=== PATIENT | female | born 1980 | race American Indian/Alaskan Native ===

== ENCOUNTER 2016-11-14 17:28 | Emergency (ER) | payer SELFPAY ==
--- NOTE | 2016-11-14 21:05 | Emergency Department Report ---
HPI - General Chief Complaint: Extremity Injury, Upper Time Seen by Provider: 11/14/16 20:53 - HPI HPI: Patient is a 36-year-old female with no known medical history presents ED complaining of pain and mild swelling to right middle finger at the tip of the finger that started Wednesday. Patient states the pain has gotten a bit worse. Patient states no draining or biting of nails. She denies fever/chills/trauma / nausea/vomiting/abdominal pain or any other problems ED Past Medical Hx - Past Medical History Hx Diabetes: Yes - Surgical History Additional Surgical History: x3. TUBAL LIGATION - Social History Smoking Status: Former Smoker Substance Use Type: Alcohol, Marijuana - Medications Home Medications: Home Medications Medication Instructions Recorded Confirmed Last Taken Type Fluconazole [Diflucan TAB] 150 mg PO ONCE #1 tablet 06/02/16 Unknown Rx metFORMIN [Glucophage] 500 mg PO QDAY #30 tab 06/02/16 Unknown Rx Acetaminophen/Codeine [Tylenol 1 tab PO Q6H #10 tablet 11/14/16 Unknown Rx /Codeine # 3 tab] Cephalexin [Keflex] 500 mg PO BID #12 capsule 11/14/16 Unknown Rx Ibuprofen [Motrin] 800 mg PO Q8HR PRN #20 tablet 11/14/16 Unknown Rx ED Review of Systems ROS: Stated complaint: DIABETIC,MIDDLE FINGER SWOLLEN Other details as noted in HPI Constitutional: denies: chills, fever Eyes: denies: eye pain, eye discharge, vision change ENT: denies: ear pain, throat pain Respiratory: denies: cough, shortness of breath, wheezing Cardiovascular: denies: chest pain, palpitations Endocrine: no symptoms reported Gastrointestinal: denies: abdominal pain, nausea, diarrhea Genitourinary: denies: urgency, dysuria, discharge Musculoskeletal: denies: back pain, joint swelling, arthralgia Skin: denies: rash, lesions Neurological: denies: headache, weakness, paresthesias Psychiatric: denies: anxiety, depression Hematological/Lymphatic: denies: easy bleeding, easy bruising Physical Exam - Physical Exam Vital Signs: Vital Signs 11/14/16 17:53 Temperature 98.7 F Pulse Rate 96 H Respiratory 18 Rate Blood Pressure 110/74 O2 Sat by Pulse 100 Oximetry Physical Exam: GENERAL: Alert and oriented x3, no apparent distress, Normal Gait, atraumatic. HEAD: Head is normocephalic and a-traumatic. MOUTH:Mouth is well hydrated and without lesions. Tonsils nonerythematous or swollen, Uvula midline, Tongue not elevated. Mucous membranes are moist. Posterior pharynx clear, no exudate or lesions. Patent airways. NECK: Supple. Non edematous, No carotid bruits. No lymphadenopathy or thyromegaly. No C-spine tenderness LUNGS: Symetrical with respiration, No wheezing, no rales or crackles, CTAB. HEART: S1, S2 present, regular rate and rhythm without murmur, no rubs, no gallops. EXTREMITIES/MUSCULOSKELETAL: No cyanosis, clubbing, rash, lesions or edema. Full ROM bilaterally. UE Pulses 2+ bilaterally. UE 5+ strength bilaterally. Prior to handling joints are intact. Full range of motion. Tender to palpation to medial last tip of the finger. No edema non-fluctuant nonerythematous. capillary refill 2 seconds bilaterally NEUROLOGIC: The patient is cooperative with no focal neurologic deficits. Cranial nerves II through XII are grossly intact. SKIN: Warm and dry, No lesions, No ulceration or induration present. ED Course Vital Signs 11/14/16 17:53 Temperature 98.7 F Pulse Rate 96 H Respiratory 18 Rate Blood Pressure 110/74 O2 Sat by Pulse 100 Oximetry ED Medical Decision Making - Medical Decision Making 36-year-old female presents with a mild paronychia of the right middle finger ED course: Patient received 2 Tylenol with codeine by mouth for pain Discussed the patient home medication of antibiotics Discussed the patient to follow up with primary care physician. Vital signs are normal patient is no acute or respiratory distress. Acid patient to apply heat 3 times a day to the finger. Patient understands instructions given and will follow up. Discussed to return to the ED with any worsening symptoms Critical care attestation.: If time is entered above; I have spent that time in minutes in the direct care of this critically ill patient, excluding procedure time. ED Disposition Clinical Impression: Paronychia of finger of right hand Disposition: DISCHARGED TO HOME OR SELFCARE Is pt being admited?: No Does the pt Need Aspirin: No Condition: Stable Instructions: Paronychia (ED) Prescriptions: Acetaminophen/Codeine [Tylenol /Codeine # 3 tab] 1 tab PO Q6H #10 tablet Cephalexin [Keflex] 500 mg PO BID #12 capsule Ibuprofen [Motrin] 800 mg PO Q8HR PRN #20 tablet PRN Reason: Pain Referrals: PRIMARY CARE, [Primary Care Provider] - 3-5 Days PANTERA PARRA MD [Referring] - 3-5 Days KATY OTERO MD [Referring] - 3-5 Days [facility] [Outside] - 3-5 Days [facility] [Outside] - 3-5 Days Forms: Accompanied Note, Work/School Release Form(ED) Time of Disposition: 21:18
[2016-11-14] MEDS ORDERED: TYLENOL #3 PO ONE (21:06)
[2016-11-15 05:27] VITALS: BP 134/88
== END 2016-11-14 22:00 | disposition home or self-care (01) ==
LOC: ED 17:28
DX: L03.011 Cellulitis of right finger (principal); E11.9 Type 2 diabetes mellitus without complications; F12.90 Cannabis use, unspecified, uncomplicated; Z87.891 Personal history of nicotine dependence
CPT/HCPCS: 99282